=== PATIENT | female | born 1970 | race Caucasian/White ===

== ENCOUNTER → 2016-10-05 | Outpatient (CLI) | payer BC, OTHER ==
--- NOTE | 2016-10-07 10:19 | RADRPT ---
PROCEDURE: Video-fluoroscopy swallowing study. CLINICAL INDICATION: Dysphagia. TECHNIQUE: Fluoroscopic guided video swallowing study was done in conjunction with the speech ther apist. The study was confined to the oral, pharyngeal, and cervical phases of the swallowing mechani sm. 1.8 minutes of fluoroscopy time was used. COMPARISON: No prior study is available for comparison. FINDINGS: There is transient penetration with nectar-thick liquids using a straw. There is no evidence of asp iration during the exam. IMPRESSION: 1. Transient penetration. No aspiration. 2. Please refer to the speech therapist's recommendations for future feedings. RPTAT: QQ .Sukhjinder Ballard MD, MD Date Time Electronically viewed and signed by .Sukhjinder Ballard MD, MD on 10/07/2016 10:18 .R/
== END | disposition home or self-care (01) ==
LOC: RAD 12:02
PROVIDERS: ATTEND Otolaryngology
DX: K21.9 Gastro-esophageal reflux disease without esophagitis (principal)
CPT/HCPCS: 74230; 92611